=== PATIENT | male | born 1990 | race Caucasian/White ===

== ENCOUNTER 2017-03-01 19:00 | Emergency (ER) | payer OTHER ==
--- NOTE | 2017-03-01 20:14 | DIAGNOSTIC IMAGING REPORT ---
PROCEDURE: XR SHOULDER 2 OR MORE VW-LEFT INDICATION: TRAUMA/INJURY TECHNIQUE: Three views. COMPARISON: None. FINDINGS: Osseous structures, joint spaces and soft tissues are normal. IMPRESSION: 1. Normal left shoulder.
--- NOTE | 2017-03-01 21:39 | ED NURSING NOTES ---
Clinical Report - Nurses [facility] [address] [place] [address] 03/01/2017 19:02 Patient: ASHLEY GIRALDO TRIAGE Triage time 19:11. Acuity: LEVEL 3. Chief Complaint: LEFT UPPER EXTREMITY PAIN. Location of symptoms- left shoulder. --19:19 Pradip Melendez R.N. 19:11 03/01/17. BP: 119/74. HR: 89. RR: 16. O2 saturation: 96%. Temp: 98.9 F (oral). Pain level now: 01/15. --19:19 Pradip Melendez R.N. Weight: 97.5 kg. Height/Length: 71 inches. BMI: 30. --19:18 Pradip Melendez R.N. Medications None. --19:15 Pradip Melendez R.N. Medication/allergy information source: the patient. --19:19 Pradip Melendez R.N. Allergies No Known Drug Allergy. --19:15 Pradip Melendez R.N. History Arrived by private vehicle. Historian: patient. Accompanied by friend. ( While working on his truck on a blu, it slipped off the blu while he was under and the driveline hit his left shoulder. Good CWMS of the left arm, and was placed on a sling by his friend.). This occurred today. It is described as radiating to the left upper extremity and upper arm. Provoking / relieving factors: worsened by movement; relieved by not moving. Treatment CRANBERRY GROWER: Ice. PAST MEDICAL HX: Negative. Tetanus status: unknown. SURGERY HX: Tonsillectomy. SOCIAL HX: Light tobacco smoker (cigarette)- less than 1/2 a pack per day. Occasional alcohol use; consumes beer. History of drug use: marijuana. (2 months ago). --19:19 Pradip Melendez R.N. Interventions ID band on patient. To room. --19:19 Al, Christopher, R.N. PHYSICAL ASSESSMENT Ambulatory to room. GENERAL / NEURO / PSYCH: Oriented X 4. Alert. Appears in no acute distress. Appears in pain. EXTREMITIES: Limited ROM present in the left shoulder and left upper arm. Neuro-vascular status intact to the extremity. Left shoulder: tenderness and small abrasion. Limited ROM due to pain. SKIN: Skin intact. Skin is warm and dry. --19:20 Pradip Melendez R.N. NURSING PROGRESS NOTES Cold pack applied. Extremity elevated. Neuro-vascular extremity check. Patient identifiers checked. Call light placed in reach. Side rails up x 1. Bed placed in lowest position. Brakes of bed on. Patient ready for evaluation- chart flagged and ED physician and TRANSFER STATION ATTENDANT notified. --19:21 Pradip Melendez R.N. 19:37 03/01/2017 Site #1 started via IV in the right hand with an 20g angiocath; one attempt. Saline lock flushed with 10 mL saline. --19:42 Pradip Melendez R.N. 19:47 03/01/2017 Zofran (Ondansetron HCl) IVP 4 mg given over 2 minute(s) via site #1. Allergies verified and confirmed 5 rights. IV patency established. IV site checked: no pain, redness, or swelling. IV flushed thoroughly pre- and post-medication administration. IVP given by RN. --19:52 Pradip Melendez R.N. 19:47 03/01/2017 Dilaudid (HYDROmorphone HCl PF) IVP 1 mg given over 2 minute(s) via site #1. Allergies verified, confirmed 5 rights and sedative warning given to the patient and patient's clinical transplant coordinator. IV patency established. IV site checked: no pain, redness, or swelling. IV flushed thoroughly pre- and post-medication administration. IVP given by RN. --19:52 Pradip Melendez R.N. Reassessment after medication administered. He is calm. Overall patient status is improved- he states feels better. GENERAL / NEURO / PSYCH: The patient reports pain that is located in the left shoulder is still present but improving and currently moderate in severity. Alert. Oriented X 4. RESPIRATORY: No respiratory distress. CVS: Capillary refill less than 2 seconds. EXTREMITIES: Neuro-vascular status intact to the extremity. SKIN: Skin is warm and dry. --20:45 Pradip Melendez R.N. 21:30 03/01/2017 Site #1 removed upon discharge. Manual pressure and bandaid applied. --21:35 Pradip Melendez R.N. DISPOSITION / DISCHARGE Condition at departure: improved. No learning barriers present. Discharge instructions provided and reviewed with clinical transplant coordinator and the patient (friend). Reviewed medication(s) side effects, precautions, dosing and course information. Prescription(s) given to the patient. Reviewed referral to a primary care physician for followup. Patient verbalized understanding. Written instructions provided in Chinese. The patient was discharged home and accompanied by clinical transplant coordinator and friend. He left the Emergency Department ambulatory and via private vehicle. [employer] driving (friend). --21:43 Pradip Melendez R.N. 21:36 03/01/17. BP: 116/68. HR: 85. RR: 16. O2 saturation: 100%. Temp: deferred. Pain level now: 12/16. --21:43 Pradip Melendez R.N. Departure time: 21:43. --21:44 Pradip Melendez R.N. Locked/Released at 03/01/2017 21:44 by Pradip Melendez R.N.
--- NOTE | 2017-03-01 21:39 | ED NURSING NOTES ---
Clinical Report - Nurses [facility] [address] [place] [address] 03/01/2017 19:02 Patient: ASHLEY GIRALDO TRIAGE Triage time 19:11. Acuity: LEVEL 3. Chief Complaint: LEFT UPPER EXTREMITY PAIN. Location of symptoms- left shoulder. --19:19 Pradip Melendez R.N. 19:11 03/01/17. BP: 119/74. HR: 89. RR: 16. O2 saturation: 96%. Temp: 98.9 F (oral). Pain level now: 01/15. --19:19 Pradip Melendez R.N. Weight: 97.5 kg. Height/Length: 71 inches. BMI: 30. --19:18 Pradip Melendez R.N. Medications None. --19:15 Pradip Melendez R.N. Medication/allergy information source: the patient. --19:19 Pradip Melendez R.N. Allergies No Known Drug Allergy. --19:15 Pradip Melendez R.N. History Arrived by private vehicle. Historian: patient. Accompanied by friend. ( While working on his truck on a blu, it slipped off the blu while he was under and the driveline hit his left shoulder. Good CWMS of the left arm, and was placed on a sling by his friend.). This occurred today. It is described as radiating to the left upper extremity and upper arm. Provoking / relieving factors: worsened by movement; relieved by not moving. Treatment RELIGION DEPARTMENT CHAIR: Ice. PAST MEDICAL HX: Negative. Tetanus status: unknown. SURGERY HX: Tonsillectomy. SOCIAL HX: Light tobacco smoker (cigarette)- less than 1/2 a pack per day. Occasional alcohol use; consumes beer. History of drug use: marijuana. (2 months ago). --19:19 Pradip Melendez R.N. Interventions ID band on patient. To room. --19:19 Al, Christopher, R.N. PHYSICAL ASSESSMENT Ambulatory to room. GENERAL / NEURO / PSYCH: Oriented X 4. Alert. Appears in no acute distress. Appears in pain. EXTREMITIES: Limited ROM present in the left shoulder and left upper arm. Neuro-vascular status intact to the extremity. Left shoulder: tenderness and small abrasion. Limited ROM due to pain. SKIN: Skin intact. Skin is warm and dry. --19:20 Pradip Melendez R.N. NURSING PROGRESS NOTES Cold pack applied. Extremity elevated. Neuro-vascular extremity check. Patient identifiers checked. Call light placed in reach. Side rails up x 1. Bed placed in lowest position. Brakes of bed on. Patient ready for evaluation- chart flagged and ED physician and SPECIALIST PHYSICIAN notified. --19:21 Pradip Melendez R.N. 19:37 03/01/2017 Site #1 started via IV in the right hand with an 20g angiocath; one attempt. Saline lock flushed with 10 mL saline. --19:42 Pradip Melendez R.N. 19:47 03/01/2017 Zofran (Ondansetron HCl) IVP 4 mg given over 2 minute(s) via site #1. Allergies verified and confirmed 5 rights. IV patency established. IV site checked: no pain, redness, or swelling. IV flushed thoroughly pre- and post-medication administration. IVP given by RN. --19:52 Pradip Melendez R.N. 19:47 03/01/2017 Dilaudid (HYDROmorphone HCl PF) IVP 1 mg given over 2 minute(s) via site #1. Allergies verified, confirmed 5 rights and sedative warning given to the patient and patient's associate professor of medicine. IV patency established. IV site checked: no pain, redness, or swelling. IV flushed thoroughly pre- and post-medication administration. IVP given by RN. --19:52 Pradip Melendez R.N. Reassessment after medication administered. He is calm. Overall patient status is improved- he states feels better. GENERAL / NEURO / PSYCH: The patient reports pain that is located in the left shoulder is still present but improving and currently moderate in severity. Alert. Oriented X 4. RESPIRATORY: No respiratory distress. CVS: Capillary refill less than 2 seconds. EXTREMITIES: Neuro-vascular status intact to the extremity. SKIN: Skin is warm and dry. --20:45 Pradip Melendez R.N. 21:30 03/01/2017 Site #1 removed upon discharge. Manual pressure and bandaid applied. --21:35 Pradip Melendez R.N. DISPOSITION / DISCHARGE Condition at departure: improved. No learning barriers present. Discharge instructions provided and reviewed with associate professor of medicine and the patient (friend). Reviewed medication(s) side effects, precautions, dosing and course information. Prescription(s) given to the patient. Reviewed referral to a primary care physician for followup. Patient verbalized understanding. Written instructions provided in Belarusian. The patient was discharged home and accompanied by associate professor of medicine and friend. He left the Emergency Department ambulatory and via private vehicle. [employer] driving (friend). --21:43 Pradip Melendez R.N. 21:36 03/01/17. BP: 116/68. HR: 85. RR: 16. O2 saturation: 100%. Temp: deferred. Pain level now: 12/16. --21:43 Pradip Melendez R.N. Departure time: 21:43. --21:44 Pradip Melendez R.N. Locked/Released at 03/01/2017 21:44 by Pradip Melendez R.N.
--- NOTE | 2017-03-01 21:39 | ED ORDER SUMMARY ---
..... Patient: ASHLEY GIRALDO OrderSheet [facility] VisitID: [id number] [address] [place] [address] 26y, M Registration Date/Time: 03/01/2017 ORDER SHEET Weight: 97.5 kg Allergies: No Known Drug Allergy GENERAL ORDERS: Shoulder 2V or more Left Urgent (19:41 03/01/2017 Sarah RAPHAEL) (Ack 19:46 CHagjesu ER Stitch Bonding Machine Drawer In) (20:05 Misha ER Stitch Bonding Machine Drawer In) Shoulder Immobilizer (21:33 03/01/2017 Sarah RAPHAEL) (Ack 21:44 CHernandez R.N.) (21:44 Nikolainandez R.N.) MEDICATION ORDERS: IV FLUIDS: Dilaudid IV 1 mg (NOW) (19:38 03/01/2017 Sarah RAPHAEL) (Ack 19:41 Nikolainandez R.N.) (19:52 Nikolainandez R.N.) IV Saline Lock (19:38 03/01/2017 Sarah RAPHAEL) (Ack 19:41 Nikolainandez R.N.) (19:42 Nikolainandez R.N.) Zofran IV 4 mg (NOW) (19:40 03/01/2017 Sarah RAPHAEL) (Ack 19:42 Nikolainandez R.N.) (19:52 CHernandez R.N.) ORDER SHEET NOTES: [Electronically signed by Pradip Melendez R.N. (21:44 03/01/2017)] [Electronically signed by Glenn Bojorquez MD (14:18 03/03/2017)] [Electronically locked/signed by Pradip Melendez R.N. (21:44 03/01/2017)]
--- NOTE | 2017-03-01 21:39 | ED ORDER SUMMARY ---
..... Patient: ASHLEY GIRALDO OrderSheet [facility] VisitID: [id number] [address] [place] [address] 26y, M Registration Date/Time: 03/01/2017 ORDER SHEET Weight: 97.5 kg Allergies: No Known Drug Allergy GENERAL ORDERS: Shoulder 2V or more Left Urgent (19:41 03/01/2017 Sarah RAPHAEL) (Ack 19:46 CHagjesu ER Collar Feller) (20:05 Misha ER Collar Feller) Shoulder Immobilizer (21:33 03/01/2017 Sarah RAPHAEL) (Ack 21:44 CHernandez R.N.) (21:44 Nikolainandez R.N.) MEDICATION ORDERS: IV FLUIDS: Dilaudid IV 1 mg (NOW) (19:38 03/01/2017 Sarah RAPHAEL) (Ack 19:41 Nikolainandez R.N.) (19:52 Nikolainandez R.N.) IV Saline Lock (19:38 03/01/2017 Sarah RAPHAEL) (Ack 19:41 Nikolainandez R.N.) (19:42 Nikolainandez R.N.) Zofran IV 4 mg (NOW) (19:40 03/01/2017 Sarah RAPHAEL) (Ack 19:42 Nikolainandez R.N.) (19:52 CHernandez R.N.) ORDER SHEET NOTES: [Electronically signed by Pradip Melendez R.N. (21:44 03/01/2017)] [Electronically signed by Glenn Bojorquez MD (14:18 03/03/2017)] [Electronically locked/signed by Pradip Melendez R.N. (21:44 03/01/2017)]
--- NOTE | 2017-03-01 21:39 | ED CLINICAL REPORT ---
Clinical Report - Physicians/Mid Levels [facility] [address] [place] [address] 03/01/2017 19:02 Patient: ASHLEY ALVAREZ Time Seen: 19:32. Arrived- By private vehicle. Historian- patient. HISTORY OF PRESENT ILLNESS Chief Complaint: Injury to the left shoulder. The injury happened today 2 hours ago. Occurred at home. 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 The truck was up on jacks over a dirt surface. One of the wood blocks supporting the jacks gave way and the driveline of the truck pinned his left shoulder to the dirt. The patient notes significant pain he denies other injuries specifically he denies chest pain or shortness of breath.). Patient is experiencing severe pain. No other injury. REVIEW OF SYSTEMS The patient has had swelling. No tingling, numbness, weakness, suspected foreign body or skin laceration. PAST HISTORY PCP: None Illness: None Operations: None. Problems: no known problems. Medications: None. Allergies: No Known Drug Allergy. SOCIAL HISTORY Current every day smoker. ADDITIONAL NOTES The nursing notes have been reviewed. PHYSICAL EXAM Vital Signs: 03/01/2017 21:36 BP: 116/68. HR: 85. RR: 16. O2 saturation: 100%. Pain level now: 4/10. 03/01/2017 19:11 BP: 119/74. HR: 89. RR: 16. O2 saturation: 96%. Temp: 98.9 F. Pain level now: 5/10. Appearance: Alert. Patient in moderate distress. Head: Head atraumatic. Neck: C-spine non-tender. Respiratory: No respiratory distress. Breath sounds normal. Chest nontender. Abdomen: No visible injury. Soft and nontender. Back: No tenderness. Extremities: Left shoulder: severe tenderness, moderate swelling and medium sized ecchymosis located in the anterior aspect of the shoulder. Neurovascular intact distally. No deformity. No joint effusion. Extremities otherwise negative. Neuro, Vascular and Tendons: Vascular status intact. Sensation intact. Motor intact. Neuro: No alteration in mental status. LABS, X-RAYS, AND EKG Lt Shoulder X-ray: No fracture. Normal alignment. No bony lesion. (PROCEDURE: XR SHOULDER 2 OR MORE VW-LEFT INDICATION: TRAUMA/INJURY TECHNIQUE: Three views. COMPARISON: None. FINDINGS: Osseous structures, joint spaces and soft tissues are normal. IMPRESSION: 1. Normal left shoulder. Electronically Final signed by:Juanjo Crowley MD 03/01/2017 8:14:15 PM Technologist: ALONZO). PROGRESS AND PROCEDURES PROCEDURES (Sling placed). Course of Care: 19:46 03/01/17. Removed clothing. Ordered IV Dilaudid and Zofran. X-ray to follow. Amazingly, there was no fracture. The rotator cuff will need to be assessed by ortho after pain improves. Disposition: Discharged. CLINICAL IMPRESSION Single contusion to the left shoulder. INSTRUCTIONS Apply ice. Elevate affected areas above chest level. Wear sling. (YOU HAVE A SEVERE CONTUSION OF THE LEFT SHOULDER. THERE ARE NO BONES BROKEN YOU MAY HAVE DAMAGED THE ROTATOR CUFF. YOU CERTAINLY NEED A FOLLOW-UP WITH AN ORTHOPEDIC PHYSICIAN. ON FRIDAY CALL FOR AN APPOINTMENT SOON YOU CAN GET IT. 6-10 DAYS WOULD BE FINE THE RIGHT AID AT [facility] WILL BE OPEN TODAY. YOU CAN GET YOUR MEDICINES THERE TONIGHT). Prescription Medications: Hydrocodone/APAP 5mg / 325mg: take 1-2 orally every 4 hours as needed for pain. Dispense twenty (20). No refill. Understanding of the discharge instructions verbalized by patient and family. [facility]-up with: [facility], , [address], , [place], [address] Follow up in six days. Call for an appointment. Reason for referral: FOLLOW UP FOR SEVERE SHOULDER COTUSION. (Electronically signed by Glenn Bojorquez MD 03/03/2017 14:18)
--- NOTE | 2017-03-01 21:39 | ED CLINICAL REPORT ---
Clinical Report - Physicians/Mid Levels [facility] [address] [place] [address] 03/01/2017 19:02 Patient: ASHLEY ALVAREZ Time Seen: 19:32. Arrived- By private vehicle. Historian- patient. HISTORY OF PRESENT ILLNESS Chief Complaint: Injury to the left shoulder. The injury happened today 2 hours ago. Occurred at home. 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 The truck was up on jacks over a dirt surface. One of the wood blocks supporting the jacks gave way and the driveline of the truck pinned his left shoulder to the dirt. The patient notes significant pain he denies other injuries specifically he denies chest pain or shortness of breath.). Patient is experiencing severe pain. No other injury. REVIEW OF SYSTEMS The patient has had swelling. No tingling, numbness, weakness, suspected foreign body or skin laceration. PAST HISTORY PCP: None Illness: None Operations: None. Problems: no known problems. Medications: None. Allergies: No Known Drug Allergy. SOCIAL HISTORY Current every day smoker. ADDITIONAL NOTES The nursing notes have been reviewed. PHYSICAL EXAM Vital Signs: 03/01/2017 21:36 BP: 116/68. HR: 85. RR: 16. O2 saturation: 100%. Pain level now: 4/10. 03/01/2017 19:11 BP: 119/74. HR: 89. RR: 16. O2 saturation: 96%. Temp: 98.9 F. Pain level now: 5/10. Appearance: Alert. Patient in moderate distress. Head: Head atraumatic. Neck: C-spine non-tender. Respiratory: No respiratory distress. Breath sounds normal. Chest nontender. Abdomen: No visible injury. Soft and nontender. Back: No tenderness. Extremities: Left shoulder: severe tenderness, moderate swelling and medium sized ecchymosis located in the anterior aspect of the shoulder. Neurovascular intact distally. No deformity. No joint effusion. Extremities otherwise negative. Neuro, Vascular and Tendons: Vascular status intact. Sensation intact. Motor intact. Neuro: No alteration in mental status. LABS, X-RAYS, AND EKG Lt Shoulder X-ray: No fracture. Normal alignment. No bony lesion. (PROCEDURE: XR SHOULDER 2 OR MORE VW-LEFT INDICATION: TRAUMA/INJURY TECHNIQUE: Three views. COMPARISON: None. FINDINGS: Osseous structures, joint spaces and soft tissues are normal. IMPRESSION: 1. Normal left shoulder. Electronically Final signed by:Juanjo Crowley MD 03/01/2017 8:14:15 PM Technologist: ALONZO). PROGRESS AND PROCEDURES PROCEDURES (Sling placed). Course of Care: 19:46 03/01/17. Removed clothing. Ordered IV Dilaudid and Zofran. X-ray to follow. Amazingly, there was no fracture. The rotator cuff will need to be assessed by ortho after pain improves. Disposition: Discharged. CLINICAL IMPRESSION Single contusion to the left shoulder. INSTRUCTIONS Apply ice. Elevate affected areas above chest level. Wear sling. (YOU HAVE A SEVERE CONTUSION OF THE LEFT SHOULDER. THERE ARE NO BONES BROKEN YOU MAY HAVE DAMAGED THE ROTATOR CUFF. YOU CERTAINLY NEED A FOLLOW-UP WITH AN ORTHOPEDIC PHYSICIAN. ON FRIDAY CALL FOR AN APPOINTMENT SOON YOU CAN GET IT. 6-10 DAYS WOULD BE FINE THE RIGHT AID AT [facility] WILL BE OPEN TODAY. YOU CAN GET YOUR MEDICINES THERE TONIGHT). Prescription Medications: Hydrocodone/APAP 5mg / 325mg: take 1-2 orally every 4 hours as needed for pain. Dispense twenty (20). No refill. Understanding of the discharge instructions verbalized by patient and family. Follow-up with: [facility], , [address], , [place], [id number] Follow up in six days. Call for an appointment. Reason for referral: FOLLOW UP FOR SEVERE SHOULDER COTUSION. (Electronically signed by Glenn Bojorquez MD 03/03/2017 14:18)
--- NOTE | 2017-03-03 14:18 | ED DISCHARGE INSTRUCTIONS ---
Patient: ASHLEY GIRALDO General Instructions [facility] VisitID: [id number] [address] [place] [address] 26y, M Registration Date/Time: 03/01/2017 Single contusion to the left shoulder. INSTRUCTIONS Apply ice. Elevate affected areas above chest level. Wear sling. (YOU HAVE A SEVERE CONTUSION OF THE LEFT SHOULDER. THERE ARE NO BONES BROKEN YOU MAY HAVE DAMAGED THE ROTATOR CUFF. YOU CERTAINLY NEED A FOLLOW-UP WITH AN ORTHOPEDIC PHYSICIAN. ON FRIDAY CALL FOR AN APPOINTMENT SOON YOU CAN GET IT. 6-10 DAYS WOULD BE FINE THE RIGHT AID AT [facility] WILL BE OPEN TODAY. YOU CAN GET YOUR MEDICINES THERE TONIGHT). Prescription Medications: Hydrocodone/APAP 5mg / 325mg: take 1-2 orally every 4 hours as needed for pain. Dispense twenty (20). No refill. Understanding of the discharge instructions verbalized by patient and family. Follow-up with: [facility], , [address], , [place], [id number] Follow up in six days. Call for an appointment. Reason for referral: FOLLOW UP FOR SEVERE SHOULDER COTUSION. ADDITIONAL INFORMATION Contusion,Soft Tissue You have a CONTUSION, which is a bruise with swelling and some bleeding under the skin. There are no broken bones. This injury takes a few days to a few weeks to heal. Home Care: 1) Keep the injured part elevated to reduce pain and swelling. This is especially important during the first 48 hours. 2) Make an ice pack (ice cubes in a plastic bag, wrapped in a towel) and apply for 20 minutes every 1-2 hours the first day. Continue this 3-4 times a day until the pain and swelling goes away. 3) You may use acetaminophen (Tylenol) or ibuprofen (Motrin, Advil) to control pain, unless another pain medicine was prescribed. [ NOTE : If you have chronic liver or kidney disease or ever had a stomach ulcer or GI bleeding, talk with your doctor before using these medicines.] Follow Up with your doctor or this facility if you are not improving within the next THREE days. [NOTE: If X-rays were taken, they will be reviewed by a radiologist. You will be notified of any new findings that may affect your care.] Get Prompt Medical Attention if any of the following occur: -- Pain or swelling increases -- Injured arm or leg becomes cold, blue, numb or tingly -- Redness, warmth or drainage from the skin Hydrocodone Bitartrate, Acetaminophen Oral tablet What is this medicine? ACETAMINOPHEN; HYDROCODONE (a set a RAMONA nargis fen; felix droe KOE done) is a pain reliever. It is used to treat mild to moderate pain. How should I use this medicine? Take this medicine by mouth. Swallow it with a full glass of water. Follow the directions on the prescription label. If the medicine upsets your stomach, take the medicine with food or milk. Do not take more than you are told to take. Talk to your lineman a class regarding the use of this medicine in children. This medicine is not approved for use in children. What side effects may I notice from receiving this medicine? Side effects that you should report to your doctor or health personal care assistant as soon as possible: allergic reactions like skin rash, itching or hives, swelling of the face, lips, or tongue breathing problems confusion feeling faint or lightheaded, falls stomach pain yellowing of the eyes or skin Side effects that usually do not require medical attention (report to your doctor or health personal care assistant if they continue or are bothersome): nausea, vomiting stomach upset What may interact with this medicine? alcohol antihistamines isoniazid medicines for depression, anxiety, or psychotic disturbances medicines for sleep muscle relaxants naltrexone narcotic medicines (opiates) for pain phenobarbital ritonavir tramadol What if I miss a dose? If you miss a dose, take it as soon as you can. If it is almost time for your next dose, take only that dose. Do not take double or extra doses. Where should I keep my medicine? Keep out of the reach of children. This medicine can be abused. Keep your medicine in a safe place to protect it from theft. Do not share this medicine with anyone. Selling or giving away this medicine is dangerous and against the law. Store at room temperature between 15 and 30 degrees C (59 and 86 degrees F). Protect from light. Keep container tightly closed. Throw away any unused medicine after the expiration date. Discard unused medicine and used packaging carefully. Pets and children can be harmed if they find used or lost packages. What should I tell my health care provider before I take this medicine? They need to know if you have any of these conditions: brain tumor Crohn's disease, inflammatory bowel disease, or ulcerative colitis drink more than 3 alcohol-containing drinks per day drug abuse or addiction head injury heart or circulation problems kidney disease or problems going to the bathroom liver disease lung disease, asthma, or breathing problems an unusual or allergic reaction to acetaminophen, hydrocodone, other opioid analgesics, other medicines, foods, dyes, or preservatives or trying to get breast-feeding What should I watch for while using this medicine? Tell your doctor or health personal care assistant if your pain does not go away, if it gets worse, or if you have new or a different type of pain. You may develop tolerance to the medicine. Tolerance means that you will need a higher dose of the medicine for pain relief. Tolerance is normal and is expected if you take the medicine for a long time. Do not suddenly stop taking your medicine because you may develop a severe reaction. Your body becomes used to the medicine. This does NOT mean you are addicted. Addiction is a behavior related to getting and using a drug for a non-medical reason. If you have pain, you have a medical reason to take pain medicine. Your doctor will tell you how much medicine to take. If your doctor wants you to stop the medicine, the dose will be slowly lowered over time to avoid any side effects. You may get drowsy or dizzy when you first start taking the medicine or change doses. Do not drive, use machinery, or do anything that may be dangerous until you know how the medicine affects you. Stand or sit up slowly. There are different types of narcotic medicines (opiates) for pain. If you take more than one type at the same time, you may have more side effects. Give your health care provider a list of all medicines you use. Your doctor will tell you how much medicine to take. Do not take more medicine than directed. Call emergency for help if you have problems breathing. The medicine will cause constipation. Try to have a bowel movement at least every 2 to 3 days. If you do not have a bowel movement for 3 days, call your doctor or health personal care assistant. Too much acetaminophen can be very dangerous. Do not take Tylenol (acetaminophen) or medicines that contain acetaminophen with this medicine. Many non-prescription medicines contain acetaminophen. Always read the labels carefully. You have been given the following additional information: Contusion, Soft Tissue Hydrocodone Bitartrate, Acetaminophen Oral tablet (Electronically signed by Glenn Bojorquez MD 03/03/2017 14:18)
--- NOTE | 2017-03-03 14:18 | ED MAR SUMMARY ---
..... Medication Administration Record [facility] [address] [place] [address] Patient: ASHLEY GIRALDO Visit ID: [id number] 26y, M Weight: 97.5 kg Height/Length: 71 in BMI: 30 ALLERGIES: No Known Drug Allergy Given 19:03/01/2017 Pradpi Melendez R.N. Medication Administered: DILAUDID [IVP] (HYDROMORPHONE HCL PF), Dose: 1 mg IVP over 2 minute(s), Site: #1 right hand. Medication Ordered: Dilaudid IV 1 mg (NOW). Given :03/01/2017 Pradip Melendez R.N. Medication Administered: ZOFRAN [IVP] (ONDANSETRON HCL), Dose: 4 mg IVP over 2 minute(s), Site: #1 right hand. Medication Ordered: Zofran IV 4 mg (NOW).
--- NOTE | 2017-03-03 14:18 | ED MAR SUMMARY ---
..... Medication Administration Record [facility] [address] [place] [address] Patient: ASHLEY GIRALDO Visit ID: [id number] 26y, M Weight: 97.5 kg Height/Length: 71 in BMI: 30 ALLERGIES: No Known Drug Allergy Given 19:03/01/2017 Pradip Melendez R.N. Medication Administered: DILAUDID [IVP] (HYDROMORPHONE HCL PF), Dose: 1 mg IVP over 2 minute(s), Site: #1 right hand. Medication Ordered: Dilaudid IV 1 mg (NOW). Given :03/01/2017 Pradip Melendez R.N. Medication Administered: ZOFRAN [IVP] (ONDANSETRON HCL), Dose: 4 mg IVP over 2 minute(s), Site: #1 right hand. Medication Ordered: Zofran IV 4 mg (NOW).
--- NOTE | 2017-03-03 14:18 | ED DISCHARGE INSTRUCTIONS ---
Patient: ASHLEY GIRALDO General Instructions [facility] VisitID: [id number] [address] [place] [address] 26y, M Registration Date/Time: 03/01/2017 Single contusion to the left shoulder. INSTRUCTIONS Apply ice. Elevate affected areas above chest level. Wear sling. (YOU HAVE A SEVERE CONTUSION OF THE LEFT SHOULDER. THERE ARE NO BONES BROKEN YOU MAY HAVE DAMAGED THE ROTATOR CUFF. YOU CERTAINLY NEED A FOLLOW-UP WITH AN ORTHOPEDIC PHYSICIAN. ON FRIDAY CALL FOR AN APPOINTMENT SOON YOU CAN GET IT. 6-10 DAYS WOULD BE FINE THE RIGHT AID AT [facility] WILL BE OPEN TODAY. YOU CAN GET YOUR MEDICINES THERE TONIGHT). Prescription Medications: Hydrocodone/APAP 5mg / 325mg: take 1-2 orally every 4 hours as needed for pain. Dispense twenty (20). No refill. Understanding of the discharge instructions verbalized by patient and family. Follow-up with: [facility], , [address], , [place], [address] Follow up in six days. Call for an appointment. Reason for referral: FOLLOW UP FOR SEVERE SHOULDER COTUSION. ADDITIONAL INFORMATION Contusion,Soft Tissue You have a CONTUSION, which is a bruise with swelling and some bleeding under the skin. There are no broken bones. This injury takes a few days to a few weeks to heal. Home Care: 1) Keep the injured part elevated to reduce pain and swelling. This is especially important during the first 48 hours. 2) Make an ice pack (ice cubes in a plastic bag, wrapped in a towel) and apply for 20 minutes every 1-2 hours the first day. Continue this 3-4 times a day until the pain and swelling goes away. 3) You may use acetaminophen (Tylenol) or ibuprofen (Motrin, Advil) to control pain, unless another pain medicine was prescribed. [ NOTE : If you have chronic liver or kidney disease or ever had a stomach ulcer or GI bleeding, talk with your doctor before using these medicines.] Follow Up with your doctor or this facility if you are not improving within the next THREE days. [NOTE: If X-rays were taken, they will be reviewed by a radiologist. You will be notified of any new findings that may affect your care.] Get Prompt Medical Attention if any of the following occur: -- Pain or swelling increases -- Injured arm or leg becomes cold, blue, numb or tingly -- Redness, warmth or drainage from the skin Hydrocodone Bitartrate, Acetaminophen Oral tablet What is this medicine? ACETAMINOPHEN; HYDROCODONE (a set a RAMONA nargis fen; felix droe KOE done) is a pain reliever. It is used to treat mild to moderate pain. How should I use this medicine? Take this medicine by mouth. Swallow it with a full glass of water. Follow the directions on the prescription label. If the medicine upsets your stomach, take the medicine with food or milk. Do not take more than you are told to take. Talk to your vp human resources regarding the use of this medicine in children. This medicine is not approved for use in children. What side effects may I notice from receiving this medicine? Side effects that you should report to your doctor or health prompt care rn as soon as possible: allergic reactions like skin rash, itching or hives, swelling of the face, lips, or tongue breathing problems confusion feeling faint or lightheaded, falls stomach pain yellowing of the eyes or skin Side effects that usually do not require medical attention (report to your doctor or health prompt care rn if they continue or are bothersome): nausea, vomiting stomach upset What may interact with this medicine? alcohol antihistamines isoniazid medicines for depression, anxiety, or psychotic disturbances medicines for sleep muscle relaxants naltrexone narcotic medicines (opiates) for pain phenobarbital ritonavir tramadol What if I miss a dose? If you miss a dose, take it as soon as you can. If it is almost time for your next dose, take only that dose. Do not take double or extra doses. Where should I keep my medicine? Keep out of the reach of children. This medicine can be abused. Keep your medicine in a safe place to protect it from theft. Do not share this medicine with anyone. Selling or giving away this medicine is dangerous and against the law. Store at room temperature between 15 and 30 degrees C (59 and 86 degrees F). Protect from light. Keep container tightly closed. Throw away any unused medicine after the expiration date. Discard unused medicine and used packaging carefully. Pets and children can be harmed if they find used or lost packages. What should I tell my health care provider before I take this medicine? They need to know if you have any of these conditions: brain tumor Crohn's disease, inflammatory bowel disease, or ulcerative colitis drink more than 3 alcohol-containing drinks per day drug abuse or addiction head injury heart or circulation problems kidney disease or problems going to the bathroom liver disease lung disease, asthma, or breathing problems an unusual or allergic reaction to acetaminophen, hydrocodone, other opioid analgesics, other medicines, foods, dyes, or preservatives or trying to get breast-feeding What should I watch for while using this medicine? Tell your doctor or health prompt care rn if your pain does not go away, if it gets worse, or if you have new or a different type of pain. You may develop tolerance to the medicine. Tolerance means that you will need a higher dose of the medicine for pain relief. Tolerance is normal and is expected if you take the medicine for a long time. Do not suddenly stop taking your medicine because you may develop a severe reaction. Your body becomes used to the medicine. This does NOT mean you are addicted. Addiction is a behavior related to getting and using a drug for a non-medical reason. If you have pain, you have a medical reason to take pain medicine. Your doctor will tell you how much medicine to take. If your doctor wants you to stop the medicine, the dose will be slowly lowered over time to avoid any side effects. You may get drowsy or dizzy when you first start taking the medicine or change doses. Do not drive, use machinery, or do anything that may be dangerous until you know how the medicine affects you. Stand or sit up slowly. There are different types of narcotic medicines (opiates) for pain. If you take more than one type at the same time, you may have more side effects. Give your health care provider a list of all medicines you use. Your doctor will tell you how much medicine to take. Do not take more medicine than directed. Call emergency for help if you have problems breathing. The medicine will cause constipation. Try to have a bowel movement at least every 2 to 3 days. If you do not have a bowel movement for 3 days, call your doctor or health prompt care rn. Too much acetaminophen can be very dangerous. Do not take Tylenol (acetaminophen) or medicines that contain acetaminophen with this medicine. Many non-prescription medicines contain acetaminophen. Always read the labels carefully. You have been given the following additional information: Contusion, Soft Tissue Hydrocodone Bitartrate, Acetaminophen Oral tablet (Electronically signed by Glenn Bojorquez MD 03/03/2017 14:18)
--- NOTE | 2017-03-03 14:18 | ED MED RECONCILIATION SUMMARY ---
Patient: ASHLEY GIRALDO Medication Reconciliation Report [facility] VisitID: [id number] [address] [place] [address] 26y, M Registration Date/Time: 03/01/2017 Weight: 97.5 kg Height/Length: 71 in. BMI: 30.0 ALLERGIES: No Known Drug Allergy The patient's Home Medications are listed below: NONE. The source(s) of the original Home Medication information: patient The following Medications were given to the patient in the Emergency Department: Zofran [IVP] IVP 4 mg, administered: 03/01/2017 7:47:00 PM Dilaudid [IVP] IVP 1 mg, administered: 03/01/2017 7:47:00 PM The following Medications were prescribed to the patient: Hydrocodone/APAP 5mg / 325mg: take 1-2 orally every 4 hours as needed for pain. Dispense twenty (20). No refill. -- Glenn Bojorquez MD
--- NOTE | 2017-03-03 14:18 | ED MED RECONCILIATION SUMMARY ---
Patient: ASHLEY GIRALDO Medication Reconciliation Report [facility] VisitID: [id number] [address] [place] [address] 26y, M Registration Date/Time: 03/01/2017 Weight: 97.5 kg Height/Length: 71 in. BMI: 30.0 ALLERGIES: No Known Drug Allergy The patient's Home Medications are listed below: NONE. The source(s) of the original Home Medication information: patient The following Medications were given to the patient in the Emergency Department: Zofran [IVP] IVP 4 mg, administered: 03/01/2017 7:47:00 PM Dilaudid [IVP] IVP 1 mg, administered: 03/01/2017 7:47:00 PM The following Medications were prescribed to the patient: Hydrocodone/APAP 5mg / 325mg: take 1-2 orally every 4 hours as needed for pain. Dispense twenty (20). No refill. -- Glenn Bojorquez MD
== END 2017-03-01 21:43 | disposition home or self-care (01) ==
LOC: ED SRH 19:00
DX: S40.012A Contusion of left shoulder, initial encounter (principal); W23.1XXA Caught, crushed, jammed, or pinched between stationary objects, initial encounter; Y93.89 Activity, other specified; Y92.9 Unspecified place or not applicable; Y99.9 Unspecified external cause status; F17.210 Nicotine dependence, cigarettes, uncomplicated